=== PATIENT | male | born 2000 | race Caucasian/White ===

== ENCOUNTER 2022-07-08 23:54 | Emergency (ER) | payer BC ==
[2022-07-09 00:14] VITALS: BP 133/77; PULSE 93
[2022-07-09] MEDS ORDERED: Bupivacaine 0.5% 10 ML SDV INJECT ONE (00:42)
[2022-07-09] MEDS ORDERED: Lidocaine 1% 10 ML MDV INJECT ONE (00:42)
[2022-07-09] MEDS ORDERED: Diphtheria,Pertussis(Acell),Tetanus Vaccine 0.5 ML Syringe IM ONE (00:43)
== END 2022-07-09 02:00 | disposition home or self-care (01) ==
LOC: JD.ED 23:54
DX: S61.215A Laceration without foreign body of left ring finger without damage to nail, initial encounter (principal); S61.217A Laceration without foreign body of left little finger without damage to nail, initial encounter; F17.220 Nicotine dependence, chewing tobacco, uncomplicated; Z23 Encounter for immunization; W26.0XXA Contact with knife, initial encounter
CPT/HCPCS: 12002; 90471; 90715; 99282; J3490; 99283

== ENCOUNTER 2025-01-30 10:19 | Emergency (ER) | payer BC ==
[2025-01-30 10:45] LABS: BASOPHILS ABSOLUTE AUTO 0.0 K/mm3 (0.0-0.2); BASOPHILS PERCENT AUTO 0.7 % (0.0-1.0); EOSINOPHILS ABSOLUTE AUTO 0.2 K/mm3 (0.0-0.4); EOSINOPHILS PERCENT AUTO 3.7 % (0.0-6.0); IMMATURE GRAN ABSOLUTE AUTO 0.02 K/mm3 (0.00-0.05); IMMATURE GRAN PERCENT AUTO 0.3 % (0.0-0.4); LYMPHOCYTES ABSOLUTE AUTO 1.7 K/mm3 (1.0-4.8); LYMPHOCYTES PERCENT AUTO 29.0 % (24.0-44.0); MEAN PLATELET VOLUME 11.2 fl (9.4-12.4); MONOCYTES ABSOLUTE AUTO 0.5 K/mm3 (0.0-0.8); MONOCYTES PERCENT AUTO 8.2 % (0.0-8.0); NEUTROPHILS ABSOLUTE AUTO 3.4 K/mm3 (1.8-7.7); NEUTROPHILS PERCENT AUTO 58.1 % (41.0-71.0); NRBC ABSOLUTE 0.00 (0.00-0.02); NRBC PERCENT 0.0 % (0.0-0.2); PLATELET COUNT,PLT 229 K/mm3 (150-400); RED BLOOD CELL COUNT 5.29 M/mm3 (4.52-5.90); WHITE BLOOD CELL COUNT,WBC 5.87 K/mm3 (3.9-11.3)
[2025-01-30] MEDS: Ketorolac 60 MG/2 ML SDV IVPUSH STA (10:54)
[2025-01-30 11:13] LABS: INR 1.08
[2025-01-30 11:19] LABS: D-DIMER QUANTITATIVE < 0.19 mg/L (0.19-0.50)
[2025-01-30 11:24] LABS: A/G RATIO 1.2 (1-2); ALANINE AMINOTRANSFERASE,ALT 36 U/L (16-63); ASPARTATE AMNIOTRANSFERASE,AST 20 U/L (15-37); BILIRUBIN TOTAL 0.4 mg/dL (0.2-1.0); BLOOD UREA NITROGEN,BUN 13 mg/dL (7-18); CARBON DIOXIDE,CO2 31 mEq/L (21-32); CHLORIDE,CL 101 mEq/L (98-107); CREATINE KINASE,CK 143 U/L (39-308); CREATININE 0.9 mg/dL (0.7-1.3); EST CRCL DRUG DOSING (CG) 131.31 mL/min; ESTIMATED GFR 120 mL/min (>60); GLUCOSE RANDOM 98 mg/dL (70-99); POTASSIUM,K 4.2 mEq/L (3.5-5.1); PROTEIN TOTAL,TP 7.8 g/dl (6.4-8.2); SODIUM,NA 138 mEq/L (136-145)
[2025-01-30 11:44] LABS: ETHANOL BLOOD MEDICAL 0.00 gm% (0.00); TROPONIN I HIGH SENSITIVITY < 4 pg/mL (<=76)
[2025-01-30 13:36] LABS: BUPRENORPHINE SCREEN,URINE NEGATIVE (CUTOFF=10); METHADONE SCREEN, URINE NEGATIVE (CUT0FF=200); METHAMPHETAMINES SCREEN, URINE NEGATIVE (CUTOFF=500); OXYCODONE SCREEN,URINE NEGATIVE (CUT0FF=100); THC SCREEN,URINE 20 NG/ML NEGATIVE (CUTOFF=50)
[2025-01-30 13:39] LABS: AMPHETAMINES SCREEN, URINE NEGATIVE (CUTOFF=500)
[2025-01-30 15:40] VITALS: BP 142/89; PULSE 78
== END 2025-01-30 15:40 | disposition home or self-care (01) ==
LOC: JD.ED 10:19
DX: K29.70 Gastritis, unspecified, without bleeding (principal); R07.89 Other chest pain; Z79.899 Other long term (current) drug therapy
CPT/HCPCS: 36415; 71045; 80053; 80306; 80307; 82550; 83690; 83735; 83880; 84484; 85025; 85379; 85610; 93005; 96374; 96375; 99285; J1308; J1885; J2470; 93010; 99284